=== PATIENT | male | born 1965 | race Caucasian/White ===

== ENCOUNTER → 2019-11-02 | Outpatient (CLI) | payer OTHER ==
--- NOTE | 2019-11-09 10:57 | SLEEPCENT ---
DATE OF SERVICE: 11/02/2019 RAMESH: Nancy Tee Nocturnal polysomnography was performed for evaluation of sleep physiology. 8 hours and 1 minute of data were reviewed. There were 394 minutes of sleep identified. Sleep latency was prolonged at 54 minutes. REM latency was normal at 55 minutes. Sleep architecture was fairly good with four REM cycles with some minor fragmentation. Overall sleep efficiency was 83.3%. The electrocardiogram showed a sinus rhythm with an average heart rate of 57 beats per minute. EEG showed reasonably normal waveforms for awake and sleep. There were only 16 respiratory events identified of 10 seconds in duration or greater for an apnea-hypopnea index within normal limits at 2.4. Snoring was noted. Arousals from respiratory events in total occurred only 1.7 times per hour. The respiratory events that were seen were associated with the supine posture. There was some limb activity noted one train of 30 events. Limb movement arousal index was 8.2. IMPRESSIONS: Normal nocturnal polysomnography with snoring. RECOMMENDATIONS: Sleep position retraining for avoidance of the supine posture may help to address the patient's snoring problem.
== END ==
LOC: M SLEEP 19:42
PROVIDERS: ATTEND Physician Assistant Medical
DX: R06.83 Snoring (principal)

== ENCOUNTER 2024-02-01 20:43 | Emergency (ER) | payer OTHER ==
[~2024-02-01] VITALS: Ht 167.6 cm; Wt 93.2 kg
[2024-02-01] MEDS: BOOSTRIX VACCINE (TETANUS/DIPHTH/ACEL. PERTUSSIS) 0.5ML SYR IM.IMMUN ONE (21:39)
[2024-02-01] MEDS ORDERED: ISOVUE-370 76% 100ML VIAL As Ordered ONE (22:19)
[2024-02-02] MEDS: ceFAZolin SOD 1 GM in D5W MINI-BAG PLUS 50 ML IV ONE (00:20)
[2024-02-02] MEDS ORDERED: AMOX875T2 PO (00:30)
[2024-02-02] MEDS ORDERED: PERC5TAB12 PO (00:30)
[2024-02-02 00:39] VITALS: BP 137/77; TEMP 98.2; O2SAT 98
[2024-02-02] MEDS: OXYCODONE/APAP 5MG/325MG(HOME DOSE PACK) PO ONE (00:46)
== END 2024-02-02 02:40 | disposition home or self-care (01) ==
LOC: EDBD 20:43 → M ED 20:43
DX: S01.21XA Laceration without foreign body of nose, initial encounter (principal); S02.2XXA Fracture of nasal bones, initial encounter for closed fracture; S22.31XA Fracture of one rib, right side, initial encounter for closed fracture; S32.019A Unspecified fracture of first lumbar vertebra, initial encounter for closed fracture; S32.029A Unspecified fracture of second lumbar vertebra, initial encounter for closed fracture; S40.211A Abrasion of right shoulder, initial encounter; S50.811A Abrasion of right forearm, initial encounter; V29.99XA Rider (driver) (passenger) of other motorcycle injured in unspecified traffic accident, initial encounter; Y92.9 Unspecified place or not applicable; Y93.9 Activity, unspecified; Y99.9 Unspecified external cause status
CPT/HCPCS: 12011; 70450; 70486; 71260; 72125; 73030; 74177; 80047; 90471; 90715; 94010; 96365; 96366; 99284; J0690; Q9967